=== PATIENT | female | born 1965 | race Caucasian/White ===

== ENCOUNTER 2019-10-03 15:05 | Inpatient (IN) | payer OTHER, SELFPAY ==
[~2019-10-03] VITALS: Ht 149.9 cm; Wt 53.1 kg
[2019-10-03 15:05] VITALS: BP_SYST 144
[2019-10-03] MEDS ORDERED: AZITHROMYCIN 500 MG in NS 250 ML IV ONE (15:45)
[2019-10-03] MEDS ORDERED: HYDROXYCHLOROQUINE SULFATE 200 MG TABLET PO ONE (15:45)
[2019-10-03] MEDS ORDERED: ASCORBIC ACID 500 MG TABLET PO ONE (15:45)
[2019-10-03 16:30] LABS: BILIRUBIN,URINE NEGATIVE (NEGATIVE); BLOOD, URINE NEGATIVE (NEGATIVE); CLARITY/URINE CLEAR (CLEAR); COLOR,URINE YELLOW (YELLOW); GLUCOSE,URINE NEGATIVE (NEGATIVE); KETONES,URINE NEGATIVE (NEGATIVE); LEUKOCYTE ESTERASE ,URINE NEGATIVE (NEGATIVE); NITRITE, URINE NEGATIVE (NEGATIVE); PROTEIN URINE NEGATIVE (NEGATIVE); UROBILINOGEN,URINE 0.2 (0.2-1.0)
[2019-10-03 16:38] LABS: BASOPHILS % (AUTO) 0.1 % (0.0-2.0); HEMATOCRIT 39.9 % (36-48); LYMPHOCYTES # (AUTO) 0.8 K/uL (1.0-5.5); LYMPHOCYTES % (AUTO) 9.8 % (20.5-51.5); MEAN CORPUSCULAR HEMOGLOBIN 31 pg (27-31); MEAN CORPUSCULAR HGB CONC 35 % (32-36); MEAN CORPUSCULAR VOLUME 90 fL (79.0-98.0); MONOCYTES # (AUTO) 0.7 K/uL (0.0-1.0); MONOCYTES % (AUTO) 8.9 % (1.7-9.3); NEUTROPHILS # (AUTO) 6.3 K/uL (1.8-7.7); NEUTROPHILS % (AUTO) 81.2 % (40.0-70.0); PLATELET COUNT (AUTO) 315 K/uL (130-430); RED BLOOD CELL COUNT(AUTO) 4.44 MIL/uL (4.2-6.2); RED CELL DISTRIBUTION WIDTH 13.2 % (9.0-15.0); WHITE BLOOD COUNT (AUTO) 7.7 K/uL (4.8-10.8)
[2019-10-03 16:58] LABS: CALCIUM 8.3 mg/dL (8.4-11.0); CREATININE 0.81 mg/dL (0.55-1.30); POTASSIUM 3.3 mmol/L (3.5-5.1)
[2019-10-03 17:03] LABS: ALBUMIN 3.4 g/dL (3.4-4.8); C-REACTIVE PROTEIN QUANT 7.9 mg/dL (0-0.5); TOTAL BILIRUBIN 0.6 mg/dL (0.0-1.0)
[2019-10-03] MEDS ORDERED: AZITHROMYCIN 500 MG/VIAL (ZITHROMAX) IV ONE (17:17)
[2019-10-03] MEDS ORDERED: ONDANSETRON HCL 4 MG/2 ML VIAL IVP PRN (20:30)
[2019-10-03] MEDS ORDERED: HYDROcodone/ACETAMIN 5-325 MG TAB (NORCO/ VICODIN) PO PRN (20:30)
[2019-10-03] MEDS ORDERED: MORPHINE 4 MG/ML INJ. SYRINGE IVP PRN (20:30)
[2019-10-03] MEDS ORDERED: NACL 0.9% 1,000 ML IV ONE (20:30)
[2019-10-03] MEDS ORDERED: SIMV40TA5 PO (20:47)
[2019-10-03] MEDS ORDERED: LEVO-98 PO (20:47)
[2019-10-03] MEDS ORDERED: BUSP10TA3 PO (20:49)
[2019-10-03 21:31] VITALS: BP_SYST 112
[2019-10-04] VITALS: BP_SYST 124
[2019-10-04 07:07] LABS: BASOPHILS % (AUTO) 0.2 % (0.0-2.0); EOSINOPHILS % (AUTO) 0.1 % (0.0-4.0); HEMATOCRIT 34.8 % (36-48); HEMOGLOBIN 11.9 g/dL (12.0-16.0); LYMPHOCYTES # (AUTO) 1.4 K/uL (1.0-5.5); LYMPHOCYTES % (AUTO) 20.4 % (20.5-51.5); MEAN CORPUSCULAR HEMOGLOBIN 31 pg (27-31); MEAN CORPUSCULAR HGB CONC 34 % (32-36); MEAN CORPUSCULAR VOLUME 90 fL (79.0-98.0); MONOCYTES # (AUTO) 0.5 K/uL (0.0-1.0); MONOCYTES % (AUTO) 7.6 % (1.7-9.3); NEUTROPHILS # (AUTO) 4.9 K/uL (1.8-7.7); NEUTROPHILS % (AUTO) 71.7 % (40.0-70.0); PLATELET COUNT (AUTO) 268 K/uL (130-430); RED BLOOD CELL COUNT(AUTO) 3.88 MIL/uL (4.2-6.2); RED CELL DISTRIBUTION WIDTH 12.9 % (9.0-15.0); WHITE BLOOD COUNT (AUTO) 6.8 K/uL (4.8-10.8)
[2019-10-04 07:30] LABS: ALBUMIN 2.4 g/dL (3.4-4.8); CALCIUM 7.6 mg/dL (8.4-11.0); CREATININE 0.6 mg/dL (0.55-1.30); POTASSIUM 3.3 mmol/L (3.5-5.1); TOTAL BILIRUBIN 0.5 mg/dL (0.0-1.0)
[2019-10-04 08:00] VITALS: BP_SYST 119
[2019-10-04 12:00] VITALS: BP_SYST 115
[2019-10-04] MEDS ORDERED: POTASSIUM CHLORIDE 20 MEQ TAB.PRT.SR PO ONE (12:45)
[2019-10-04] MEDS ORDERED: ASCORBIC ACID 500 MG TABLET PO ONE (16:30)
[2019-10-04] MEDS: AZITHROMYCIN 500 MG in NS 250 ML IV SCH (16:47)
[2019-10-04] MEDS ORDERED: HYDROXYCHLOROQUINE PO ONE (17:00)
[2019-10-04 17:26] LABS: C-REACTIVE PROTEIN QUANT 9.6 mg/dL (0-0.5)
[2019-10-04] MEDS ORDERED: ACETAMINOPHEN 325 MG TABLET PO PRN (18:45)
[2019-10-04] MEDS: HEPARIN SODIUM,PORCINE 5000 UNITS/ML VIAL SUBCUT SCH ×3 (18:45→21:21)
[2019-10-04 20:00] VITALS: BP_SYST 99
[2019-10-04] MEDS ORDERED: HYDROXYCHLOROQUINE SULFATE 200 MG TABLET PO SCH (21:00)
[2019-10-05] VITALS: BP_SYST 94
[2019-10-05 06:57] LABS: BASOPHILS % (AUTO) 0.2 % (0.0-2.0); EOSINOPHILS # (AUTO) 0.1 K/uL (0.0-0.4); HEMATOCRIT 34.4 % (36-48); HEMOGLOBIN 11.7 g/dL (12.0-16.0); LYMPHOCYTES # (AUTO) 1.6 K/uL (1.0-5.5); LYMPHOCYTES % (AUTO) 25.3 % (20.5-51.5); MEAN CORPUSCULAR HEMOGLOBIN 31 pg (27-31); MEAN CORPUSCULAR HGB CONC 34 % (32-36); MEAN CORPUSCULAR VOLUME 90 fL (79.0-98.0); MONOCYTES # (AUTO) 0.6 K/uL (0.0-1.0); MONOCYTES % (AUTO) 9.1 % (1.7-9.3); NEUTROPHILS % (AUTO) 64.4 % (40.0-70.0); PLATELET COUNT (AUTO) 309 K/uL (130-430); RED BLOOD CELL COUNT(AUTO) 3.84 MIL/uL (4.2-6.2); RED CELL DISTRIBUTION WIDTH 13.1 % (9.0-15.0); WHITE BLOOD COUNT (AUTO) 6.2 K/uL (4.8-10.8)
[2019-10-05 08:00] VITALS: BP_SYST 111
[2019-10-05 08:54] LABS: C-REACTIVE PROTEIN QUANT 10.8 mg/dL (0-0.5); CALCIUM 7.8 mg/dL (8.4-11.0); CREATININE 0.7 mg/dL (0.55-1.30); POTASSIUM 3.6 mmol/L (3.5-5.1)
[2019-10-05] MEDS ORDERED: HYDROXYCHLOROQUINE SULFATE 200 MG TABLET PO ONE (09:00)
[2019-10-05] MEDS: ASCORBIC ACID 500 MG TABLET PO SCH (09:51)
[2019-10-05 10:52] LABS: ERYTHROCYTE SEDIMENTATION RATE 85 MM/HR (0-20)
[2019-10-05 12:00] VITALS: BP_SYST 116
[2019-10-05] MEDS: HEPARIN SODIUM,PORCINE 5000 UNITS/ML VIAL SUBCUT SCH ×2 (12:30→21:32)
[2019-10-05] MEDS: AZITHROMYCIN 500 MG in NS 250 ML IV SCH (17:00)
[2019-10-05 20:00] VITALS: BP_SYST 125
[2019-10-05] MEDS: HYDROXYCHLOROQUINE 200 MG PO SCH (21:31)
[2019-10-06 00:25] VITALS: BP_SYST 99
[2019-10-06 06:44] LABS: BASOPHILS % (AUTO) 0.2 % (0.0-2.0); EOSINOPHILS # (AUTO) 0.1 K/uL (0.0-0.4); EOSINOPHILS % (AUTO) 1.2 % (0.0-4.0); HEMATOCRIT 34.2 % (36-48); HEMOGLOBIN 11.8 g/dL (12.0-16.0); LYMPHOCYTES # (AUTO) 1.3 K/uL (1.0-5.5); MEAN CORPUSCULAR HEMOGLOBIN 31 pg (27-31); MEAN CORPUSCULAR HGB CONC 35 % (32-36); MEAN CORPUSCULAR VOLUME 89 fL (79.0-98.0); MONOCYTES # (AUTO) 0.6 K/uL (0.0-1.0); MONOCYTES % (AUTO) 10.8 % (1.7-9.3); NEUTROPHILS # (AUTO) 3.4 K/uL (1.8-7.7); NEUTROPHILS % (AUTO) 63.8 % (40.0-70.0); PLATELET COUNT (AUTO) 346 K/uL (130-430); RED BLOOD CELL COUNT(AUTO) 3.85 MIL/uL (4.2-6.2); RED CELL DISTRIBUTION WIDTH 12.8 % (9.0-15.0); WHITE BLOOD COUNT (AUTO) 5.3 K/uL (4.8-10.8)
[2019-10-06 07:06] LABS: ALBUMIN 2.5 g/dL (3.4-4.8); C-REACTIVE PROTEIN QUANT 6.3 mg/dL (0-0.5); CALCIUM 8.1 mg/dL (8.4-11.0); CREATININE 0.62 mg/dL (0.55-1.30); POTASSIUM 3.6 mmol/L (3.5-5.1); TOTAL BILIRUBIN 0.7 mg/dL (0.0-1.0)
[2019-10-06 07:34] LABS: ERYTHROCYTE SEDIMENTATION RATE 86 MM/HR (0-20)
[2019-10-06 08:08] VITALS: BP_SYST 107
[2019-10-06] MEDS: ASCORBIC ACID 500 MG TABLET PO SCH (08:12)
[2019-10-06] MEDS: HEPARIN SODIUM,PORCINE 5000 UNITS/ML VIAL SUBCUT SCH ×2 (08:13→21:13)
[2019-10-06] MEDS: ALBUTEROL MDI INHALATION 8 GM INH INH PRN ×2 (08:15→17:45)
[2019-10-06] MEDS: HYDROXYCHLOROQUINE 200 MG PO SCH ×2 (08:19→21:11)
[2019-10-06 12:30] VITALS: BP_SYST 105
[2019-10-06 17:25] VITALS: BP_SYST 123
[2019-10-06] MEDS: AZITHROMYCIN 500 MG in NS 250 ML IV SCH (17:43)
[2019-10-06 19:30] VITALS: BP_SYST 112
[2019-10-06] MEDS ORDERED: SIMVASTATIN 40 MG TABLET PO SCH (21:00)
[2019-10-06] MEDS: busPIRone HCL 5 MG TABLET PO SCH (21:11)
[2019-10-06 23:58] VITALS: BP_SYST 100
[2019-10-07] MEDS ORDERED: LEVOTHYROXINE SODIUM 0.05 MG TABLET PO SCH (07:00)
[2019-10-07 08:00] VITALS: BP_SYST 119
[2019-10-07] MEDS: busPIRone HCL 5 MG TABLET PO SCH (09:00)
[2019-10-07] MEDS: ASCORBIC ACID 500 MG TABLET PO SCH (09:00)
[2019-10-07] MEDS: HYDROXYCHLOROQUINE 200 MG PO SCH (09:00)
[2019-10-07] MEDS ORDERED: HYDR200T38 PO (11:18)
[2019-10-07 12:00] VITALS: BP_SYST 94
[2019-10-07] MEDS: AZITHROMYCIN 500 MG in NS 250 ML IV SCH (17:00)
[2019-10-07 18:46] VITALS: BP_SYST 119
== END 2019-10-07 19:10 | disposition home or self-care (01) | DRG 177 ==
LOC: EEVIPCON 15:05 → SED 15:05 → STU 18:05
PROVIDERS: ADMIT Internal Medicine Hospice and Palliative Medicine; ATTEND Internal Medicine Hospice and Palliative Medicine
DX: U07.1 COVID-19 (principal); J12.89 Other viral pneumonia; J96.01 Acute respiratory failure with hypoxia; E43 Unspecified severe protein-calorie malnutrition; E83.51 Hypocalcemia; D64.9 Anemia, unspecified; Z78.9 Other specified health status; Z68.23 Body mass index [BMI] 23.0-23.9, adult
CPT/HCPCS: 36415; 36600; 71045; 80048; 80053; 81003; 82550-TC; 82728; 82803-TC; 83605; 83615-TC; 84484; 85025; 85651-TC; 86140; 87040-TC; 93005; 96365; 99285; G0378; J0456; J1644; J7030; J7050